=== PATIENT | male | born 1950 | race Caucasian/White ===

== ENCOUNTER 2021-06-14 15:16 | Outpatient (CLI) | payer MEDICARE, SELFPAY ==
--- NOTE | ~2021-06-14 | XR_ITS ---
EXAMINATION: XR wrist LT min 3V, XR wrist RT min 3V DATE: 06/14/2021 15:51 INDICATION: Osteoarthritis at the bilateral wrists. TECHNIQUE: 1. Posteroanterior, ulnar deviation, oblique, and lateral views of the left wrist were obtained. 2. Posteroanterior, ulnar deviation, oblique, and lateral views of the right wrist were obtained. COMPARISON: none FINDINGS: Normal alignment at the left wrist and carpus. No fracture. Postoperative change of prior right first carpal metacarpal suspension arthroplasty with resection of the trapezium. Alignment remains near-an atomic with minimal proximal migration of the first metacarpal. There are several residual small wound care coordinator navin appearing bone fragments at the resection bed. Moderate to severe osteoarthritis at the left firs t carpometacarpal joint. Moderate osteoarthritis at the first and second metacarpophalangeal joints a nd mild osteoarthritis at the bilateral wrist and midcarpal joints. IMPRESSION: 1. 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 2. Status post right first carpal metacarpal suspension arthroplasty. Reviewed, dictated and finalized at location A. IMPRESSION: 1. 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 2. Status post right first carpal metacarpal suspension arthroplasty.
== END 2021-06-14 15:17 | disposition home or self-care (01) ==
LOC: ANHIMG 15:25
PROVIDERS: PCP Family Medicine; Visit Provider Plastic Surgery
DX: M19.031 Primary osteoarthritis, right wrist (principal); M19.032 Primary osteoarthritis, left wrist
CPT/HCPCS: 73110

== ENCOUNTER 2021-06-22 08:31 | Outpatient (CLI) | payer MEDICARE, SELFPAY ==
--- NOTE | 2021-06-22 11:00 | NEURO_ITS ---
Impression: # Complains of numbness of hands. # Bilateral mild evolving Carpal Tunnel Syndrome. # Bilateral ulnar neuropathy across the elbows. # Normal needle/EMG exam. # Clinical correlation recommended; even though needle/EMG exam is normal F- waves are prolonged. Higher involvement needs to be ruled out. Nerve Conduction Studies Anti Sensory Summary Table Stim Site NR Peak (ms) P-T Amp (?V) Site1 Site2 Delta-P (ms) Dist (cm) Tex (m/s) Left Median Anti Sensory (2-3nd Digit) Wrist 3.6 28.3 Wrist 2-3nd Digit 3.6 14.0 39 Wrist 3.8 25.1 Wrist 2-3nd Digit 3.6 14.0 39 Right Median Anti Sensory (2-3nd Digit) Wrist 4.0 12.9 Wrist 2-3nd Digit 4.0 14.0 35 Wrist 3.9 9.2 Wrist 2-3nd Digit 4.0 14.0 35 Left Radial Anti Sensory (Base 1st Digit) Wrist 2.5 16.3 Wrist Base 1st Digit 2.5 0.0 Right Radial Anti Sensory (Base 1st Digit) Wrist 2.8 25.5 Wrist Base 1st Digit 2.8 0.0 Left Ulnar Anti Sensory (5th Digit) Wrist 2.9 37.8 Wrist 5th Digit 2.9 14.0 48 Right Ulnar Anti Sensory (5th Digit) Wrist 2.9 17.8 Wrist 5th Digit 2.9 14.0 48 Motor Summary Table Stim Site NR Onset (ms) O-P Amp (mV) Site1 Site2 Delta-0 (ms) Dist (cm) Tex (m/s) Left Median Motor (Abd Poll Brev) Wrist 4.3 3.7 Elbow Wrist 5.4 31.0 57 Elbow 9.7 3.1 Right Median Motor (Abd Poll Brev) Wrist 4.1 2.9 Elbow Wrist 5.5 30.0 55 Elbow 9.6 2.4 Left Ulnar Motor (Abd Dig Minimi) Wrist 3.0 6.7 A Elbow Wrist 7.3 32.0 44 A Elbow 10.3 5.1 B Elbow Wrist 4.3 24.0 56 B Elbow 7.3 5.0 Right Ulnar Motor (Abd Dig Minimi) Wrist 3.0 6.3 A Elbow Wrist 6.5 29.0 45 A Elbow 9.5 5.0 B Elbow Wrist 4.0 22.0 55 B Elbow 7.0 5.3 F Wave Studies NR F-Lat (ms) L-R F-Lat (ms) Left Median (Mrkrs) (Abd Poll Brev) 34.02 2.53 Right Median (Mrkrs) (Abd Poll Brev) 36.55 2.53 Left Ulnar (Mrkrs) (Abd Dig Min) 36.79 1.35 Right Ulnar (Mrkrs) (Abd Dig Min) 35.44 1.35 EMG Side Muscle Nerve Root Ins Act Fibs Amp Dur Recrt Comment Right 1stDorInt Ulnar C8-T1 Nml Nml Nml Nml Nml Right Ext Indicis Radial (Post Int) C7-8 Nml Nml Nml Nml Nml Right Ext Digitorum Radial (Post Int) C7-8 Nml Nml Nml Nml Nml Right BrachioRad Radial C5-6 Nml Nml Nml Nml Nml Right PronatorTeres Median C6-7 Nml Nml Nml Nml Nml Right Abd Poll Brev Median C8-T1 Nml Nml Nml Nml Nml Left 1stDorInt Ulnar C8-T1 Nml Nml Nml Nml Nml Left Ext Indicis Radial (Post Int) C7-8 Nml Nml Nml Nml Nml Left Ext Digitorum Radial (Post Int) C7-8 Nml Nml Nml Nml Nml Left BrachioRad Radial C5-6 Nml Nml Nml Nml Nml Left PronatorTeres Median C6-7 Nml Nml Nml Nml Nml Left Abd Poll Brev Median C8-T1 Nml Nml Nml Nml Nml Right ABD Dig Min Ulnar C8-T1 Nml Nml Nml Nml Nml Left ABD Dig Min Ulnar C8-T1 Nml Nml Nml Nml Nml Right Biceps Musculocut C5-6 Nml Nml Nml Nml Nml Right Triceps Radial C6-7-8 Nml Nml Nml Nml Nml Left Biceps Musculocut C5-6 Nml Nml Nml Nml Nml Left Triceps Radial C6-7-8 Nml Nml Nml Nml Nml MTDD
== END 2021-06-22 08:32 | disposition home or self-care (01) ==
PROVIDERS: PCP Family Medicine; Visit Provider Plastic Surgery
DX: R20.0 Anesthesia of skin (principal); R53.1 Weakness; G56.03 Carpal tunnel syndrome, bilateral upper limbs; G56.23 Lesion of ulnar nerve, bilateral upper limbs
CPT/HCPCS: 95886; 95911